=== PATIENT | male | born 2000 | race African-American/Black ===

== ENCOUNTER 2024-02-04 01:34 | Emergency (ER) | payer OTHER ==
[2024-02-04 01:50] VITALS: BP 129/74; PULSE 100; RESP 18; TEMP 98; BMI 23.1
[2024-02-04] MEDS: KETOROLAC TROMETHAMINE 15 MG/ML VIAL IM ONE (02:26)
[2024-02-04] MEDS ORDERED: LIDOCAINE 4% PATCH TP ONE (03:25)
[2024-02-04] MEDS ORDERED: METHOCARBAMOL 500 MG TABLET ONE (03:26)
[2024-02-04] MEDS ORDERED: SIMETHICONE 80 MG TAB.CHEW (FP) ONE (03:28)
[2024-02-04] MEDS: SIMETHICONE 80 MG TAB.CHEW (FP) PO ONE (03:29)
[2024-02-04] MEDS: METHOCARBAMOL 500 MG TABLET PO ONE (03:29)
[2024-02-04] MEDS: LIDOCAINE 5% TOPICAL PATCH TP ONE (03:29)
[2024-02-04] MEDS ORDERED: LIDOCAINE PATCH REMOVAL MC SCH (22:00)
== END 2024-02-04 03:30 | disposition home or self-care (01) ==
LOC: JER 01:34
PROC: 3E0133Z Introduction of Anti-inflammatory into Subcutaneous Tissue, Percutaneous Approach (ICD-10-PCS; principal; 2024-02-04)
DX: S20.211A Contusion of right front wall of thorax, initial encounter (principal); R00.0 Tachycardia, unspecified; W01.0XXA Fall on same level from slipping, tripping and stumbling without subsequent striking against object, initial encounter; Y93.01 Activity, walking, marching and hiking
CPT/HCPCS: 71046-TC-FY; 99284-25